=== PATIENT | male | born 1985 ===

== ENCOUNTER 2023-06-05 20:32 | Emergency (ER) | payer BC ==
[2023-06-06] MEDS ORDERED: Acetaminophen 325 MG Tab PO ONE (00:42)
[2023-06-06] MEDS ORDERED: Cephalexin 500 MG Cap PO ONE (00:42)
== END 2023-06-06 01:00 | disposition home or self-care (01) ==
LOC: MW.ED 20:32
DX: Z77.098 Contact with and (suspected) exposure to other hazardous, chiefly nonmedicinal, chemicals (principal); K04.7 Periapical abscess without sinus
CPT/HCPCS: 71046; 99284; A9270; 99283

== ENCOUNTER 2023-09-24 11:22 | Emergency (ER) | payer BC ==
[2023-09-24] MEDS ORDERED: Sodium Chloride 0.9% 1,000 ML IV ONE (12:33)
[2023-09-24] MEDS ORDERED: Metoclopramide 10 MG/2 ML SDV IVPUSH ONE (12:35)
[2023-09-24] MEDS ORDERED: Meclizine 25 MG Tab PO ONE (12:35)
[2023-09-24 12:54] LABS: BASOPHILS ABSOLUTE AUTO 0.04 K/uL (0.00-0.20); BASOPHILS PERCENT AUTO 0.7 % (0.0-1.0); EOSINOPHILS ABSOLUTE AUTO 0.03 K/uL (0.00-0.45); EOSINOPHILS PERCENT AUTO 0.5 % (0.0-6.0); HEMATOCRIT 48.3 % (42.0-52.0); HEMOGLOBIN 16.6 g/dL (14.0-18.0); IMMATURE GRAN ABSOLUTE AUTO 0.01 K/uL (0.00-0.05); IMMATURE GRAN PERCENT AUTO 0.2 % (0.0-0.4); LYMPHOCYTES ABSOLUTE AUTO 1.93 K/uL (1.00-4.80); MEAN CORPUSCULAR HEMOGLOBIN 27.5 pg (28.0-32.0); MEAN CORPUSCULAR HGB CONC 34.4 g/dL (32.0-36.0); MEAN CORPUSCULAR VOLUME 80.1 fL (83.0-99.0); MEAN PLATELET VOLUME 9.7 fL (9.4-12.4); MONOCYTES ABSOLUTE AUTO 0.34 K/uL (0.00-0.80); MONOCYTES PERCENT AUTO 6.2 % (0.0-8.0); NEUTROPHILS ABSOLUTE AUTO 3.17 K/uL (1.80-7.70); NEUTROPHILS PERCENT AUTO 57.4 % (41.0-71.0); PLATELET COUNT,PLT 191 K/uL (150-400); RED BLOOD CELL COUNT 6.03 M/uL (4.52-5.90); WHITE BLOOD CELL COUNT,WBC 5.52 K/uL (3.9-11.3)
[2023-09-24 13:18] LABS: A/G RATIO 1.1 (0.9-1.6); ALBUMIN 3.9 g/dL (3.4-5.0); BILIRUBIN TOTAL 0.5 mg/dL (0.2-1.0); CALCIUM 9.3 mg/dL (8.5-10.1); CARBON DIOXIDE,CO2 28.6 mmol/L (21.0-32.0); CREATININE 1.1 mg/dL (0.8-1.3); EST CRCL DRUG DOSING (CG) 96.98 mL/min; MAGNESIUM 2.1 mg/dL (1.8-2.4); PROTEIN TOTAL,TP 7.5 g/dL (6.4-8.2)
== END 2023-09-24 15:17 | disposition home or self-care (01) ==
LOC: MW.ED 11:22
DX: R42 Dizziness and giddiness (principal)
CPT/HCPCS: 36415; 70450; 80053; 83735; 85025; 93005; 96361; 96374; 99284; A9270; J2765; J7030